=== PATIENT | female | born 1970 | race Caucasian/White ===

== ENCOUNTER → 2017-05-18 | Outpatient (CLI) | payer OTHER ==
--- NOTE | 2017-05-20 09:11 | MM ---
Reason for exam: clinical finding. History: Patient is postmenopausal. Benign excisional biopsy of the right breast, 2001. Took estrogen for 20 years. Indicated problem(s): pain in both breasts. Physical Findings: Nurse did not find any significant physical abnormalities on exam. [facility] Mammo w CAD SAMUEL Bilateral CC and MLO view(s) were taken. The breast tissue is heterogeneously dense. This may lower the sensitivity of mammography. There is no discrete abnormality. These results were verbally communicated with the patient and result sheet given to the patient on 05/18/17. ASSESSMENT: Negative, BI-RAD 1 RECOMMENDATION: Routine screening mammogram of both breasts in 1 year. Manage on a clinical basis with regard to bilateral breast pain and white nipple discharge.
== END | disposition home or self-care (01) ==
LOC: RADMAMWWP 08:14
PROVIDERS: ATTEND Family Medicine
DX: N64.4 Mastodynia (principal)

== ENCOUNTER → 2017-06-08 | Outpatient (CLI) | payer OTHER ==
--- NOTE | 2017-06-08 09:50 | CT ---
EXAMINATION TYPE: CT soft tissue neck w con DATE OF EXAM: 06/08/2017 HISTORY: Patient complains of neck mass, marked by BB, that causes some dysphagia. COMPARISON: NONE CT DLP: 281.2 mGycm. Automated Exposure Control for Dose Reduction was Utilized. TECHNIQUE: CT scan of the neck is performed with IV Contrast, patient injected with 100 mL of Omnipa que 300, axial images are obtained, coronal and sagittal reformatted images are reviewed. FINDINGS: A metallic BB is placed at area of palpable abnormality left neck on axial image 39 between hyoid bon e and false vocal cords at level of piriform sinuses. At this level there is prominent external jugul ar vein and smaller draining venous structure. No worrisome solid or cystic mass or fluid collection is seen. No suspicious adenopathy is noted. A few tiny submental lymph nodes are seen on axial image 42. Airway: No gross abnormality seen. Parotid/submandibular glands: No gross abnormality seen. Carotid/Vascular Structures: No significant plaque or stenosis the carotid bulb level bilaterally. Osseous Structures: There is straightening of cervical spine with mild to moderate disc space narrowi ng and spurring C5-C6 and C6-C7 levels appreciated. Other: Mild to moderate mucosal thickening bilateral ethmoid sinuses is present. IMPRESSION: No worrisome mass or adenopathy is seen with particular attention to area of palpable ab normality left neck
== END | disposition home or self-care (01) ==
LOC: RADCTMAIN 08:01
PROVIDERS: ATTEND Family Medicine
DX: R22.1 Localized swelling, mass and lump, neck (principal); Z88.0 Allergy status to penicillin; Z88.1 Allergy status to other antibiotic agents
CPT/HCPCS: 70491; Q9967